=== PATIENT | female | born 1990 | race Caucasian/White ===

== ENCOUNTER 2024-01-14 09:30 | Emergency (ER) | payer MEDICAID ==
[~2024-01-14] VITALS: Ht 167.6 cm; Wt 117.9 kg
[2024-01-14 09:42] VITALS: BP_SYST 124; PULSE 75; RESP 20; TEMP 98.3; O2SAT 98
[2024-01-14 11:44] VITALS: BP_SYST 124; PULSE 75; RESP 20; TEMP 98.3; O2SAT 98
== END 2024-01-14 11:38 | disposition home or self-care (01) ==
LOC: SED 09:30
DX: Z32.01 Encounter for pregnancy test, result positive (principal)
CPT/HCPCS: 36415; 84702; 99283

== ENCOUNTER 2024-01-19 21:45 | Emergency (ER) | payer MEDICAID ==
[~2024-01-19] VITALS: Ht 167.6 cm; Wt 117.9 kg
[2024-01-19 21:50] VITALS: BP_SYST 120; PULSE 68; RESP 17; TEMP 97.8; O2SAT 99
[2024-01-19 22:40] LABS: BILIRUBIN,URINE NEGATIVE (NEGATIVE); BLOOD, URINE NEGATIVE (NEGATIVE); CLARITY/URINE SL CLOUDY (CLEAR); COLOR,URINE YELLOW (YELLOW); GLUCOSE,URINE NEGATIVE (NEGATIVE); KETONES,URINE 1+ (NEGATIVE); LEUKOCYTE ESTERASE ,URINE 1+ (NEGATIVE); NITRITE, URINE NEGATIVE (NEGATIVE); PROTEIN URINE NEGATIVE (NEGATIVE)
[2024-01-19 22:43] LABS: BASOPHILS % (AUTO) 0.2 % (0.0-2.0); EOSINOPHILS # (AUTO) 0.1 K/uL (0.0-0.4); EOSINOPHILS % (AUTO) 1.2 % (0.0-4.0); HEMATOCRIT 36.1 % (36-48); LYMPHOCYTES # (AUTO) 2.2 K/uL (1.0-5.5); LYMPHOCYTES % (AUTO) 23.1 % (20.5-51.5); MEAN CORPUSCULAR HEMOGLOBIN 27 pg (27-31); MEAN CORPUSCULAR HGB CONC 33 % (32-36); MEAN CORPUSCULAR VOLUME 81 fL (79.0-98.0); MONOCYTES # (AUTO) 0.7 K/uL (0.0-1.0); MONOCYTES % (AUTO) 7.6 % (1.7-9.3); NEUTROPHILS # (AUTO) 6.6 K/uL (1.8-7.7); NEUTROPHILS % (AUTO) 67.9 % (40.0-70.0); PLATELET COUNT (AUTO) 295 K/uL (130-430); RED BLOOD CELL COUNT(AUTO) 4.49 MIL/uL (4.2-6.2); RED CELL DISTRIBUTION WIDTH 14.9 % (9.0-15.0); WHITE BLOOD COUNT (AUTO) 9.7 K/uL (4.8-10.8)
[2024-01-19 23:29] LABS: BACTERIA,URINE MODERATE /HPF (None Seen); RBC,URINE 0-3 /HPF (0-3); WBC,URINE 20-50 /HPF (0-3)
[2024-01-19 23:30] LABS: MUCUS,URINE 2+ /LPF (None Seen); TRICHOMONAS,URINE Few /HPF (None Seen)
[2024-01-19 23:50] LABS: ALBUMIN 3.6 g/dL (3.4-4.8); BILIRUBIN,DIRECT 0.1 mg/dL (0.0-0.3); CALCIUM 8.7 mg/dL (8.4-11.0); CREATININE 0.66 mg/dL (0.55-1.30); POTASSIUM 3.8 mmol/L (3.5-5.1); TOTAL BILIRUBIN 0.3 mg/dL (0.0-1.0)
[2024-01-20] MEDS ORDERED: METR-154 PO (00:58)
== END 2024-01-20 01:01 | disposition home or self-care (01) ==
LOC: SED 21:45
DX: O23.591 Infection of other part of genital tract in pregnancy, first trimester (principal); O98.311 Other infections with a predominantly sexual mode of transmission complicating pregnancy, first trimester; A59.01 Trichomonal vulvovaginitis; Z3A.08 8 weeks gestation of pregnancy
CPT/HCPCS: 36415; 76801; 76817; 80048; 80076; 81000; 81001; 81015; 85025; 87086; 87210; 99284